=== PATIENT | female | born 2000 | race Caucasian/White ===

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

== ENCOUNTER 2022-09-23 15:04 | Emergency (ER) | payer MEDICAID, SELFPAY ==
[2022-09-23 15:09] VITALS: BP 105/60; PULSE 65; RESP 16; TEMP 37.1; O2SAT 100
--- NOTE | 2022-09-23 15:14 | ED.FEMALEGU ---
HPI - Female Genitourinary General Stated complaint: uti Time Seen by Provider: 09/23/22 15:19 Source: patient and RN notes reviewed Mode of arrival: ambulatory Limitations: no limitations History of Present Illness HPI Narrative: 22-year-old female presents concern for dark colored urine. She reports she was diagnosed with a urinary tract infection loss 2 months ago, was prescribed cephalexin, however at the same time she had a medical and did not take all of the antibiotic because it caused her to vomit. She denies frequency, urgency, dysuria, back pain, abdominal pain, flank pain, hematuria, nausea, vomiting, fever. She reports she thought maybe she still had infection since she did not finish her antibiotics and her urine is dark colored. MD elicited complaint: UTI Related Data Home Medications Medication Instructions Recorded Confirmed No Home Medications 09/23/22 09/23/22 Allergies Allergy/AdvReac Type Severity Reaction Status Date / Time No Known Allergies Allergy Unknown Verified 09/23/22 15:30 Review of Systems Review of Systems: CONSTITUTIONAL: Denies malaise, chills, sweats, or fever. CARDIOVASCULAR: Denies chest pain, palpitations, or edema. RESPIRATORY: Denies cough or dyspnea. GASTROINTESTINAL: Denies abdominal pain, nausea, vomiting, diarrhea GENITOURINARY: Denies dysuria, frequency, urgency, suprapubic pressure. Denies flank pain or hematuria. Reports dark-colored urine SKIN: Denies rash or itching. MUSCULOSKELETAL: Denies back pain or myalgia. All systems reviewed & are unremarkable except as noted in HPI and below PMFSH Past Medical History Medical History (Updated 09/23/22 @ 15:35 by Renita Anderson NP) CAROLEE (generalized anxiety disorder) MDD (major depressive disorder) Family History Family History Mother No problems noted. Father No problems noted. Other Unknown family medical history Social History Social History Smoking packs per day: 0 Smoking cigarettes per day: 0.0 Years smoked: 0 Smoking pack-years: 0.00 Smoking status: Never smoker Second hand tobacco smoke exposure: No Alcohol intake: never Substance use: never Substance use type: does not use Living arrangements: with family Occupation/Education: unemployed Additional occupation/education comments: 10th grade Gender identity (if verbalized by the patient): Female Sexual Orientation (if Verbalized by the Patient): Straight or Heterosexual Spiritual care concerns: No Comments At time of signature, agree with nursing past medical, surgical, social and family history. There is no relevant family history pertinent to the presenting complaint Exam Narrative: GENERAL: Well-appearing, well-nourished, and in no acute distress. HEAD: Normocephalic. EYES: PERRLA, conjunctivae clear. NECK: Supple. No lymphadenopathy CHEST: Clear to auscultation. No respiratory distress. HEART: Regular rate and rhythm. ABDOMEN: Soft, nontender upon palpation, nondistended, normal active bowel sounds, no palpable or pulsatile masses, no guarding. No CVA tenderness SKIN: Warm, dry, no rash. NEURO: Alert and oriented x3. PSYCH: Normal mood and affect Course Course Emergency Course: Patient is aware of diagnosis, understands and agrees to treatment plan. Anticipatory guidance given. Patient agrees to follow-up as directed and is aware of reasons to seek care at the emergency department. Portions of this record may have been created with voice recognition software Level of Care: Express Care Visit Vital Signs Vital signs: Vital Signs Temperature 98.7 F 09/23/22 15:09 Pulse Rate 65 09/23/22 15:09 Respiratory Rate 16 09/23/22 15:09 Blood Pressure 105/60 09/23/22 15:09 Pulse Oximetry 100 09/23/22 15:09 Oxygen Delivery Room Air 09/23/22 15:09 Temperat
== END 2022-09-23 15:37 | disposition home or self-care (01) ==
PROVIDERS: Emergency Provider Nurse Practitioner
DX: N39.8 Other specified disorders of urinary system (principal)
CPT/HCPCS: 81003; 87086; 99213; G0463

== ENCOUNTER 2023-05-31 17:16 | Emergency (ER) | payer BC, SELFPAY ==
[2023-05-31 17:24] VITALS: BP 126/65; PULSE 100; RESP 20; TEMP 37; O2SAT 100
--- NOTE | 2023-05-31 17:27 | ED.FEMALEGU ---
HPI - Female Genitourinary General Chief complaint: PRODUCTION CELL LEADER Stated complaint: Vaginal Issue Time Seen by Provider: 05/31/23 17:33 Source: patient and RN notes reviewed Mode of arrival: ambulatory Limitations: no limitations History of Present Illness HPI Narrative: 22-year-old female presents with concern for fishy smelling vaginal discharge for 1-2 months. She reports she has also been having small amount of bleeding during intercourse. She reports the symptoms started after she had a medical in March. She denies abdominal pain, back pain, fever, aches, chills, sweats, dysuria, frequency, urgency. She reports her periods have been normal. She has not had any known exposure to STDs but would like to be tested MD elicited complaint: vaginal discharge Related Data Allergies Allergy/AdvReac Type Severity Reaction Status Date / Time No Known Allergies Allergy Unknown Verified 05/31/23 17:33 Review of Systems Review of Systems: CONSTITUTIONAL: Denies malaise, chills, sweats, or fever. CARDIOVASCULAR: Denies chest pain, palpitations, or edema. RESPIRATORY: Denies cough or dyspnea. GASTROINTESTINAL: Denies abdominal pain, nausea, vomiting, diarrhea GENITOURINARY: Denies dysuria, frequency, urgency, suprapubic pressure. Denies flank pain or hematuria. Reports fishy smelling vaginal discharge and bleeding with intercourse SKIN: Denies rash or itching. MUSCULOSKELETAL: Denies back pain or myalgia. All systems reviewed & are unremarkable except as noted in HPI and below PMFSH Past Medical History Medical History (Updated 05/31/23 @ 17:43 by Renita Anderson NP) CAROLEE (generalized anxiety disorder) MDD (major depressive disorder) Family History Family History Mother No problems noted. Father No problems noted. Other Unknown family medical history Social History Social History Smoking packs per day: 0 Smoking cigarettes per day: 0.0 Years smoked: 0 Smoking pack-years: 0.00 Smoking status: Never smoker Second hand tobacco smoke exposure: No Alcohol intake: never Substance use: never Substance use type: does not use Living arrangements: with family Occupation/Education: unemployed Additional occupation/education comments: 10th grade Gender identity (if verbalized by the patient): Female Sexual Orientation (if Verbalized by the Patient): Straight or Heterosexual Spiritual care concerns: No Comments At time of signature, agree with nursing past medical, surgical, social and family history. There is no relevant family history pertinent to the presenting complaint Exam Narrative: GENERAL: Well-appearing, well-nourished, and in no acute distress. HEAD: Normocephalic. EYES: PERRLA, conjunctivae clear. NECK: Supple. No lymphadenopathy CHEST: Clear to auscultation. No respiratory distress. HEART: Regular rate and rhythm. ABDOMEN: Soft, nontender upon palpation, nondistended, normal active bowel sounds, no palpable or pulsatile masses, no guarding. No CVA tenderness SKIN: Warm, dry, no rash. NEURO: Alert and oriented x3. PSYCH: Normal mood and affect Patient refused vaginal exam, reports she has had them in the past and they have been painful Course Course Emergency Course: Will treat for presumptive CV, test for gonorrhea, chlamydia, trich, and give patient referral to gynecology further evaluation Patient is aware of, understands and agrees to treatment plan. Anticipatory guidance given. Patient agrees to follow-up as directed and is aware of reasons to seek care at the emergency department. Portions of this record may have been created with voice recognition software Level of Care: Express Care Visit Vital Signs Vital signs: Reviewed. MDM - Female Genitourinary MDM Narrative Medical decision making narrative: Exam findings and UA show no acute c
[2023-05-31 20:21] LABS: Trichomonas Vag PCR DETECTED (NOT DETECTE)
[2023-05-31 20:56] LABS: Chlamydia trachomatis NOT DETECTED (NOT DETECTE); Neisseria gonorrhoeae PCR NOT DETECTED (NOT DETECTE)
== END 2023-05-31 18:05 | disposition home or self-care (01) ==
PROVIDERS: Emergency Provider Nurse Practitioner
DX: N89.8 Other specified noninflammatory disorders of vagina (principal)
CPT/HCPCS: 81003; 87086; 87088; 87147; 87491; 87591; 87661; 99214; G0463

== ENCOUNTER 2023-12-17 10:20 | Emergency (ER) | payer BC, SELFPAY ==
[2023-12-17 10:27] VITALS: BP 125/77; PULSE 87; RESP 16; TEMP 37.2; O2SAT 100
--- NOTE | 2023-12-17 10:40 | ED.URI ---
HPI - URI/Sore Throat General Chief Complaint: Upper Respiratory Infection Stated Complaint: Congestion/Cough History of Present Illness HPI Narrative: Patient presents with seasonal allergies. Patient states she missed work today due to her allergies and needs a work note. Patient states she was given allergy pill which did help with her symptoms. No shortness of breath no chest pain no fever no body aches no concern for any influenza or COVID. Related Data Home Medications Medication Instructions Recorded Confirmed No Home Medications 12/17/23 12/17/23 Allergies Allergy/AdvReac Type Severity Reaction Status Date / Time No Known Allergies Allergy Unknown Verified 05/31/23 17:33 Review of Systems Review of Systems: CONSTITUTIONAL: Denies chills, or sweats. Reports fever and generalized body aches EYES: Denies visual changes, redness, or discharge. ENT: Denies otalgia. Reports nasal congestion runny nose and sore throat CARDIOVASCULAR: Denies chest pain, palpitations, or edema. RESPIRATORY: Denies dyspnea. Reports occasional cough GASTROINTESTINAL: Denies abdominal pain, nausea, vomiting, or diarrhea. GENITOURINARY: Denies dysuria or hematuria. SKIN: Denies rash or itching. MUSCULOSKELETAL: Denies back pain, joint pain, or myalgia. Reports generalized body aches NEUROLOGIC: Denies headache, numbness, or weakness. PSYCHIATRIC: Denies anxiety or depression. [facility]LY [facility] Past Medical History Medical History (Updated 12/17/23 @ 10:43 by ANGELICA Jorge) CAROLEE (generalized anxiety disorder) MDD (major depressive disorder) Family History Family History Mother No problems noted. Father No problems noted. Other Unknown family medical history Social History Social History Smoking packs per day: 0 Smoking cigarettes per day: 0.0 Years smoked: 0 Smoking pack-years: 0.00 Smoking status: Never smoker Second hand tobacco smoke exposure: No Alcohol intake: never Substance use: never Substance use type: does not use Living arrangements: with family Occupation/Education: unemployed Additional occupation/education comments: 10th grade Gender identity (if verbalized by the patient): Female Sexual Orientation (if Verbalized by the Patient): Straight or Heterosexual Spiritual care concerns: No Comments At time of signature, agree with nursing past medical, surgical, social and family history. There is no relevant family history pertinent to the presenting complaint Exam Narrative: The patient is a well-developed, well-nourished in no acute distress. SKIN: Skin is warm and dry without erythema, swelling or exudate. There is good turgor. No tenting. HEAD: Atraumatic. Normocephalic. No temporal or scalp tenderness. EYES: Moist and bright. Sclera and conjunctivae normal. No discharge. PERRLA. Extraocular motions intact. Gross visual acuity intact. EARS: Pinna is normal shape and contour. Clear external auditory canals. TM pearly kauffman with good cone of light, no erythema or suppuration. Bilateral cerumen noted no gross hearing deficit. NOSE: pink, moist mucosa with good air movement. Clear rhinorrhea without nasal flaring. Septum midline. Mouth: moist mucous membranes. THROAT; mild erythema noted to posterior oropharynx with moderate postnasal drainage. Without exudate or ulceration.. Uvula midline. Normal movement of soft palate. NECK: Supple and nontender with full range of motion without discomfort. No meningeal signs. LUNGS: Equal and bilateral breath sounds without wheezes, rales or rhonchi. CHEST: The chest wall is without retractions or use of accessory muscles. HEART: Has a regular rate and rhythm without murmur, gallops, click or rub. ABDOMEN: Soft, nontender with positive active bowel sounds. No rebound tenderness. EXTREMITIES: Without cyanosis, clubbing or
== END 2023-12-17 10:53 | disposition home or self-care (01) ==
PROVIDERS: Emergency Provider Nurse Practitioner Family
DX: J30.9 Allergic rhinitis, unspecified (principal)
CPT/HCPCS: 99211; G0463

== ENCOUNTER 2024-02-19 09:49 | Emergency (ER) | payer BC, SELFPAY ==
[2024-02-19 09:54] VITALS: BP 111/67; PULSE 80; RESP 20; TEMP 36.8; O2SAT 100
--- NOTE | 2024-02-22 08:02 | ED.GENADULT ---
HPI - General Adult General Chief complaint: Urogenital-Female Stated complaint: Poss UTi Time Seen by Provider: 02/19/24 10:15 Source: patient, RN notes reviewed and old records reviewed Mode of arrival: ambulatory Limitations: no limitations History of Present Illness HPI narrative: 23-year-old female to Express Care for complaint of ongoing brown vaginal discharge and urinary frequency. Patient endorses last menstrual period started November 26. Patient reports positive test in December. [facility]. Patient denies abdominal pain, back pain, fever, bowel changes, nausea, vomiting , STI concerns. patient is anxious and tearful on exam room. Patient in no acute distress. Related Data Allergies Allergy/AdvReac Type Severity Reaction Status Date / Time No Known Allergies Allergy Unknown Verified 02/19/24 10:06 Review of Systems Review of Systems: All systems reviewed & are unremarkable except as noted in HPI and below Constitutional: Constitutional: Reports no additional constitutional complaints Eyes: Eyes: Reports no additional eye complaints ENT: Reports system reviewed and no additional complaints, except as documented Cardiovascular: Cardiovascular: Reports no additional cardiovascular complaints, Denies chest pain and Denies dyspnea Respiratory: Respiratory: Reports no additional respiratory complaints, Denies cough and Denies dyspnea Musculoskeletal: Musculoskeletal: Reports no additional musculoskeletal complaints Neurologic: Reports system reviewed and no additional complaints, except as documented Psychiatric: Psychiatric: Reports no additional psychiatric complaints [facility] Past Medical History Medical History (Updated 02/22/24 @ 20:09 by Laura Bustos APRN) CAROLEE (generalized anxiety disorder) MDD (major depressive disorder) Family History Family History Mother No problems noted. Father No problems noted. Other Unknown family medical history Social History Social History Smoking packs per day: 0 Smoking cigarettes per day: 0.0 Years smoked: 0 Smoking pack-years: 0.00 Smoking status: Never smoker Second hand tobacco smoke exposure: No Alcohol intake: never Substance use: never Substance use type: does not use Living arrangements: with family Occupation/Education: unemployed Additional occupation/education comments: 10th grade Gender identity (if verbalized by the patient): Female Sexual Orientation (if Verbalized by the Patient): Straight or Heterosexual Spiritual care concerns: No Comments At the time of my signature, I reviewed and agree with the nursing past medical, surgical, social, and family history. There is no relevant family history pertinent to the patient complaint. Exam Const: General: cooperative, healthy appearing, comfortable, no acute distress, alert and well nourished Nutritional Appearance: well nourished Orientation/consciousness: patient oriented x3 Limitations: no limitations HENMT: Head: normal to inspection Ears: external ears normal Face/Nose/Sinus: Normal external nose present, Normal nares present, normal facial exam, No erythema and No edema Face and sinus: normal facial exam, no erythema and no edema Mouth: Yes Normal oral and palatal mucosa present Eyes: General: appearance normal, both eyes and all related structures Neck: Neck: normal visual inspection, full ROM and no meningeal signs Lymphatic: no lymphadenopathy noted and no lymphedema noted Chest: Chest palpation & inspection: normal inspection of the chest Resp: Effort & Inspection: normal respiratory effort and able to speak in complete sentences Auscultation: clear to auscultation bilaterally Cardio: Jugular venous distension: no JVD Rate: regular
== END 2024-02-19 10:55 | disposition home or self-care (01) ==
PROVIDERS: Emergency Provider Nurse Practitioner Family
DX: N39.0 Urinary tract infection, site not specified (principal)
CPT/HCPCS: 81003; 87086; 99213; G0463

== ENCOUNTER 2024-03-31 10:15 | Emergency (ER) | payer BC, SELFPAY ==
[2024-03-31 10:25] VITALS: BP 119/77; PULSE 79; RESP 16; TEMP 36.7; O2SAT 99
--- NOTE | 2024-03-31 10:35 | ED.DENTAL ---
HPI - Dental/Oral General Chief complaint: Dental/Oral Stated complaint: left side jaw pain Time Seen by Provider: 03/31/24 10:30 Source: patient and RN notes reviewed Mode of arrival: ambulatory Limitations: no limitations History of Present Illness HPI Narrative: Patient presents today complaining of left lower wisdom tooth pain x3 days. Currently rates her pain 8/10 and has been taking Tylenol with some mild relief. Patient does not currently have a dentist. Reports pain increases with opening and closing of the mouth Related Data Home Medications Medication Instructions Recorded Confirmed norgestimate 0.25 mg-ethinyl 1 tablet PO DAILY 03/31/24 03/31/24 estradiol 35 mcg tablet (Sprintec (28)) Allergies Allergy/AdvReac Type Severity Reaction Status Date / Time No Known Allergies Allergy Unknown Verified 03/31/24 10:17 Review of Systems Review of Systems: CONSTITUTIONAL: Denies body aches, fever, chills, or sweats. EYES: Denies visual changes, redness, or discharge. ENT: Denies rhinorrhea, congestion, sore throat, or otalgia.+ dental pain CARDIOVASCULAR: Denies chest pain, palpitations, or edema. RESPIRATORY: Denies cough or dyspnea. GASTROINTESTINAL: Denies abdominal pain, nausea, vomiting, or diarrhea. GENITOURINARY: Denies dysuria or hematuria. SKIN: Denies rash, itching, or wounds. MUSCULOSKELETAL: Denies back pain, joint pain, or myalgia. NEUROLOGIC: Denies headache, numbness, tingling, or weakness. PSYCH: Denies depression or anxiety. FOR[facility]LY [facility] Past Medical History Medical History CAROLEE (generalized anxiety disorder) MDD (major depressive disorder) Family History Family History Mother No problems noted. Father No problems noted. Other Unknown family medical history Social History Social History Smoking packs per day: 0 Smoking cigarettes per day: 0.0 Years smoked: 0 Smoking pack-years: 0.00 Smoking status: Never smoker Second hand tobacco smoke exposure: No Alcohol intake: never Substance use: never Substance use type: does not use Living arrangements: with family Occupation/Education: unemployed Additional occupation/education comments: 10th grade Gender identity (if verbalized by the patient): Female Sexual Orientation (if Verbalized by the Patient): Straight or Heterosexual Spiritual care concerns: No Comments At time of signature, I have reviewed and agree with nursing past medical, surgical, social and family history unless otherwise noted. Please see nursing chart for further information. There is no relevant family history pertinent to the presenting complaint Exam Narrative: GENERAL: Well-appearing, well-nourished, and in no acute distress. HEAD: Normocephalic, atraumatic. EYES: EOMI. No redness or drainage. Conjunctivae normal. ENT: Mucous membranes pink and moist. Nares clear. No rhinorrhea. Tenderness in the left lower wisdom to with mild surrounding swelling of the gumline. No obvious periapical abscess. No facial swelling noted. No trismus. No facial swelling. Jaw line is nontender. NECK: Normal AROM. Supple. Bilateral anterior cervical chain lymphadenopathy. CHEST: No respiratory distress. EXTREMITIES: Normal range of motion. No edema. SKIN: Warm, dry, no rash. Capillary refill normal. Normal skin turgor. NEURO: No focal deficits. Alert and oriented x3. Gait steady. PSYCH: Normal affect. No signs of depression or anxiety. Course Course Level of Care: Express Care Visit Vital Signs Vital signs: Vital Signs Temperature 98.1 F 03/31/24 10:25 Pulse Rate 79 03/31/24 10:25 Respiratory Rate 16 03/31/24 10:25 Blood Pressure 119/77 03/31/24 10:25 Pulse Oximetry 99 03/31/24 10:25 Oxygen Delivery Room Air 07
== END 2024-03-31 10:41 | disposition home or self-care (01) ==
PROVIDERS: Emergency Provider Nurse Practitioner
DX: K08.89 Other specified disorders of teeth and supporting structures (principal)
CPT/HCPCS: 99213; G0463

== ENCOUNTER 2024-07-25 16:39 | Emergency (ER) | payer BC, SELFPAY ==
[2024-07-25 16:50] VITALS: BP 115/87; PULSE 97; RESP 16; TEMP 36.7; O2SAT 100
[2024-07-25 17:11] LABS: EDUAAPPEAR Clear; EDUABILI Negative (Negative); EDUABLOOD Negative (Negative); EDUACOLOR1 Yellow; EDUAGLUCOSE Negative (Negative); EDUAKETONE Negative (Negative); EDUALEUKO Negative (Negative); EDUANITRATE Negative (Negative); EDUAPH 7.5; EDUAPROTEIN Negative (Negative); EDUAUROBILI 0.2
--- NOTE | 2024-07-25 18:05 | ED_ITS ---
HPI - Female Genitourinary General Chief complaint: Urogenital-Female Stated complaint: urinary issue Time Seen by Provider: 07/25/24 18:05 Source: patient, RN notes reviewed and old records reviewed Mode of arrival: ambulatory Limitations: no limitations History of Present Illness HPI Narrative: patient presents with complaints of vaginal itching in urinary frequency. She denies dysuria. Reports scant vaginal discharge. She reports that she has no back pain or abdominal pain. Says that She would like to be tested for gonorrhea, chlamydia, Trichomonas. Says that she has had yeast infection in the past, reports similar type of itching, only this time itching is not quite as intense. She has not been taking anything for her symptoms. She denies any injury or trauma. She denies fever, chills, sweats. Voices no other concerns or complaints at this time. Related Data Home Medications Medication Instructions Recorded Confirmed norgestimate 0.25 mg-ethinyl 1 tablet PO DAILY 03/31/24 07/25/24 estradiol 35 mcg tablet (Sprintec (28)) Allergies Allergy/AdvReac Type Severity Reaction Status Date / Time No Known Allergies Allergy Unknown Verified 07/25/24 18:17 Review of Systems Review of Systems: All systems reviewed & are unremarkable except as noted in HPI and below Constitutional: Constitutional: Reports no additional constitutional complaints ENT: Reports system reviewed and no additional complaints, except as documented Cardiovascular: Cardiovascular: Reports no additional cardiovascular complaints Respiratory: Respiratory: Reports no additional respiratory complaints Gastrointestinal: Gastrointestinal: Reports no additional gastrointestinal complaints Genitourinary: Genitourinary: Reports no additional female genitourinary complaints and Reports as per HPI [facility] Past Medical History Medical History (Reviewed 03/31/24 @ 10:36 by Cindi Taveras, [facility], ) CAROLEE (generalized anxiety disorder) MDD (major depressive disorder) Family History Family History Mother No problems noted. Father No problems noted. Other Unknown family medical history Social History Social History Smoking packs per day: 0 Smoking cigarettes per day: 0.0 Years smoked: 0 Smoking pack-years: 0.00 Smoking status: Never smoker Second hand tobacco smoke exposure: No Alcohol intake: never Substance use: never Substance use type: does not use Living arrangements: with family Occupation/Education: unemployed Additional occupation/education comments: 10th grade Gender identity (if verbalized by the patient): Female Sexual Orientation (if Verbalized by the Patient): Straight or Heterosexual Spiritual care concerns: No Comments At the time of my signature, I reviewed and agree with the nursing past medical, surgical, social, and family history. There is no relevant family history pertinent to the patient complaint. Exam Const: General: cooperative, no acute distress, alert and awake Orientation/consciousness: oriented to person, oriented to place and oriented to time HENMT: Head: normal to inspection Resp: Effort & Inspection: normal respiratory effort and able to speak in complete sentences Auscultation: clear to auscultation bilaterally, no crackles, no rales, no rhonchi and no wheezes Cardio: Palpation: normal PMI Rate: regular rate Rhythm: regular rhythm Heart sounds: S1 normal heart sound present and S2 normal heart sound present : General: Yes bladder normal to palpation and Yes no CVA tenderness Neuro: General: oriented to person, oriented to place and oriented to time Cranial nerves: Yes CN's II-XII intact bilaterally Psych: Appearance: grossly normal Thought process: Normal thought process present Insight: Good insight present (Psych) Judgement: Good judgement present (Psych) Course Course Level of Care: Express Care Visit Vital Signs Vital signs: Vital Signs Temperature 98.1 F 07/25/24 16:50 Pulse Rate 97 07/25/24 16:50 Respiratory Rate 16 07/25/24 16:50 Blood Pressure 115/87 07/25/24 16:50 Pulse Oximetry 100 07/25/24 16:50 Oxygen Delivery Room Air 07/25/24 16:50 Temperature 98.1 F 07/25/24 16:50 Pulse Rate 97 07/25/24 16:50 Respiratory Rate 16 07/25/24 16:50 Blood Pressure 115/87 07/25/24 16:50 Pulse Oximetry 100 07/25/24 16:50 Oxygen Delivery Room Air 07/25/24 16:50 Reviewed MDM - Female Genitourinary MDM Narrative Medical decision making narrative: UA with no sign of infection. Dirty urine sent for gonorrhea, chlamydia, Trichomonas. Treat for he vaginal yeast infection. Discharge instructions reviewed with patient, as well as provided in writing per nursing staff. The instructions also include specific and strict return/GO TO THE ER as well as f/u information. All questions have been answered, and the patient deny any further questions with discharge and discharge plan. Some parts of this dictation were generated by voice recognition software and may contain typographical and/or grammatical inaccuracies. Differential Diagnosis Differential diagnosis: Likely urinary tract infection, bacterial vaginosis, trichomoniasis and vaginitis Medical Records Attestation: I reviewed the patient's medical records. Lab Data Attestation: I reviewed the patient's lab results. Labs: Lab Results 07/25/24 07/25/24 07/25/24 Range/Units 16:58 16:58 16:58 POC Urine Color Yellow Yellow POC Urine Clarity Clear Clear POC Urine pH 7.5 POC Ur Specif [place] POC Urine Protein (Negative) POC Ur Glucose (UA) (Negative) POC Urine Ketones (Negative) POC Urine Blood (Negative) POC Urine Nitrite (Negative) POC Urine Bilirubin (Negative) POC Urine Urobilinogen POC U Leukocyte Esteras (Negative) 07/25/24 07/25/24 07/25/24 Range/Units 16:58 16:58 16:58 POC Urine Color POC Urine Clarity POC Urine pH 7.5 POC Ur Specif [place] 1.020 1.020 POC Urine Protein Negative Negative (Negative) POC Ur Glucose (UA) Negative (Negative) POC Urine Ketones (Negative) POC Urine Blood (Negative) POC Urine Nitrite (Negative) POC Urine Bilirubin (Negative) POC Urine Urobilinogen POC U Leukocyte Esteras (Negative) 07/25/24 07/25/24 07/25/24 Range/Units 16:58 16:58 16:58 POC Urine Color POC Urine Clarity POC Urine pH POC Ur Specif [place] POC Urine Protein (Negative) POC Ur Glucose (UA) Negative (Negative) POC Urine Ketones Negative Negative (Negative) POC Urine Blood Negative Negative (Negative) POC Urine Nitrite Negative (Negative) POC Urine Bilirubin (Negative) POC Urine Urobilinogen POC U Leukocyte Esteras (Negative) 07/25/24 07/25/24 07/25/24 Range/Units 16:58 16:58 16:58 POC Urine Color POC Urine Clarity POC Urine pH POC Ur Specif [place] POC Urine Protein (Negative) POC Ur Glucose (UA) (Negative) POC Urine Ketones (Negative) POC Urine Blood (Negative) POC Urine Nitrite Negative (Negative) POC Urine Bilirubin Negative Negative (Negative) POC Urine Urobilinogen 0.2 0.2 POC U Leukocyte Esteras Negative (Negative) 07/25/24 Range/Units 16:58 POC Urine Color POC Urine Clarity POC Urine pH POC Ur Specif [place] POC Urine Protein (Negative) POC Ur Glucose (UA) (Negative) POC Urine Ketones (Negative) POC Urine Blood (Negative) POC Urine Nitrite (Negative) POC Urine Bilirubin (Negative) POC Urine Urobilinogen POC U Leukocyte Esteras Negative (Negative) Discharge Plan Discharge Clinical Impression: Yeast infection Patient Disposition: Home, Self-Care Condition: Stable Instructions: Antibiotic Form, Yeast Infection (ED) Additional Instructions: take medication as prescribed. Follow with primary care provider. Emergency department for new or worse symptoms Patient Language: Hungarian Prescriptions: New fluconazole [Diflucan] 200 mg tablet 200 mg PO DAILY Qty: 2 0RF Rx Instructions: take 1 by mouth now, may repeat in 48-72 hours if symptoms still persist No Action norgestimate-ethinyl estradiol [Sprintec (28)] 0.25-35 mg-mcg tablet 1 tablet PO DAILY Follow-up/Referrals: PHYSICIAN,ENGINE HOSTLER [Primary Care Provider] - Time of Disposition: 18:21
[2024-07-26 19:53] LABS: Trichomonas Vag PCR NOT DETECTED (NOT DETECTE)
[2024-07-26 20:13] LABS: Chlamydia trachomatis NOT DETECTED (NOT DETECTE); Neisseria gonorrhoeae PCR NOT DETECTED (NOT DETECTE)
== END 2024-07-25 18:25 | disposition home or self-care (01) ==
PROVIDERS: Emergency Provider Nurse Practitioner Family
DX: B37.31 Acute candidiasis of vulva and vagina (principal)
CPT/HCPCS: 81003; 87491; 87591; 87661; 99213; G0463

== ENCOUNTER 2024-08-04 11:54 | Emergency (ER) | payer BC, SELFPAY ==
[2024-08-04 12:06] VITALS: BP 125/76; PULSE 86; RESP 16; TEMP 36.3; O2SAT 99
--- NOTE | 2024-08-04 12:38 | ED.FEMALEGU ---
HPI - Female Genitourinary General Chief complaint: Urogenital-Female Stated complaint: vaginal odor,bleeding Time Seen by Provider: 08/04/24 12:20 Source: patient Mode of arrival: ambulatory Limitations: no limitations History of Present Illness HPI Narrative: 24-year-old female presents with complaint of vaginal spotting for 3-4 days. Reports that vaginal spotting at started after intercourse. Last menstrual period was July 05. Not on control. Also reports vaginal odor, irritation. Reports that she is not in any pain. No abdominal cramping or back pain. Patient concern for STI. Does not have a paint pourer. All systems reviewed and negative except as noted above. Related Data Home Medications Medication Instructions Recorded Confirmed norgestimate 0.25 mg-ethinyl 1 tablet PO DAILY 03/31/24 07/25/24 estradiol 35 mcg tablet (Sprintec (28)) Allergies Allergy/AdvReac Type Severity Reaction Status Date / Time No Known Allergies Allergy Unknown Verified 08/04/24 11:59 Review of Systems Review of Systems: CONSTITUTIONAL: Denies fever, chills, or sweats. EYES: Denies visual changes, redness, or discharge. ENT: Denies rhinorrhea, congestion, sore throat, or otalgia. CARDIOVASCULAR: Denies chest pain, palpitations, or edema. RESPIRATORY: Denies cough or dyspnea. GASTROINTESTINAL: Denies abdominal pain, nausea, vomiting, or diarrhea. GENITOURINARY: Denies dysuria or hematuria. Reports vaginal spotting, odor, irritation. SKIN: Denies rash or itching. MUSCULOSKELETAL: Denies back pain, joint pain, or myalgia. NEUROLOGIC: Denies headache, numbness, or weakness. PSYCHIATRIC: Denies anxiety or depression. All other systems reviewed are negative, except as documented in HPI. [facility], LAT[facility] Past Medical History Medical History CAROLEE (generalized anxiety disorder) MDD (major depressive disorder) Family History Family History Mother No problems noted. Father No problems noted. Other Unknown family medical history Social History Social History Smoking packs per day: 0 Smoking cigarettes per day: 0.0 Years smoked: 0 Smoking pack-years: 0.00 Smoking status: Never smoker Second hand tobacco smoke exposure: No Alcohol intake: never Substance use: never Substance use type: does not use Living arrangements: with family Occupation/Education: unemployed Additional occupation/education comments: 10th grade Gender identity (if verbalized by the patient): Female Sexual Orientation (if Verbalized by the Patient): Straight or Heterosexual Spiritual care concerns: No Comments At time of signature, agree with nursing past medical, surgical, social and family history. There is no relevant family history pertinent to the presenting complaint. Exam Narrative: GENERAL: This is a well-nourished, well-developed patient, in no apparent distress. HEAD: normocephalic, atraumatic. EYES: PERRL. Sclera clear/white. Vision is grossly intact. EARS: External ears normal NOSE: External nose normal NECK: Neck supple, non-tender without lymphadenopathy, masses or thyromegaly. CARDIOVASCULAR: Regular rate and rhythm without murmurs, gallops, or rubs. RESPIRATORY: Clear to auscultation. Breath sounds equal bilaterally. No wheezes, rales, or rhonchi. SKIN: warm, Dry, intact with no suspicious lesions or rash, good texture and turgor. NEURO: awake, alert, and oriented to person, place and time. There were no obvious focal neurologic abnormalities. EXTREMITIES: No joint tenderness, effusion, or edema noted. urogenital: pelvic exam was deferred by patient Course Course Level of Care: Express Care Visit Vital Signs Vital signs: Vital Signs Temperature 36.3 C L 08/04/24 12:06 Pulse Rate 86 08/04/24 12:06 Respiratory Rate 16 08/04/24 12:06 Blood Pressure 125/76 08/04/24 12:06 Pulse Oximetry 99 08/04/24 12:06 Oxygen Delivery Room Air 08/04/24 12:06 Temperature 36.3 C L 08/04/24 12:06 Pulse Rate 86 08/04/24 12:06 Respiratory Rate 16 08/04/24 12:06 Blood Pressure 125/76 08/04/24 12:06 Pulse Oximetry 99 08/04/24 12:06 Oxygen Delivery Room Air 08/04/24 12:06 reviewed MDM - Female Genitourinary MDM Narrative Medical decision making narrative: urine test was negative. Patient is not in any pain or discomfort. Gonorrhea, chlamydia and Trichomonas ordered. Also testing for bacterial vaginosis and yeast. Patient wants to wait for test results prior to treating with any antibiotics. Patient referred to paint pourer and primary care physician for follow-up. Patient is well-appearing, nontoxic. Patient is aware of diagnosis, understands and agrees to treatment plan. Anticipatory guidance given. Patient agrees to follow-up as directed and is aware of reasons to seek care at the emergency department. Portions of this record may have been created with voice recognition software Differential Diagnosis Differential diagnosis: Likely bacterial vaginosis, trichomoniasis and other ( gonorrhea, chlamydia, yeast infection) Discharge Plan Discharge Clinical Impression: Vaginal spotting, Vaginal irritation, Concern about sexually transmitted disease in female without diagnosis Patient Disposition: Home, Self-Care Condition: Stable Instructions: Antibiotic Form, Abnormal (Dysfunctional) Uterine Bleeding (ED) Additional Instructions: your test was negative today. You were tested for gonorrhea, chlamydia, Trichomonas, yeast and bacterial vaginosis today. Results will take 48-72 hours. Follow-up with paint pourer at next available appointment for further evaluation. For any worsening of her symptoms go to the ER. Prescriptions: No Action norgestimate-ethinyl estradiol [Sprintec (28)] 0.25-35 mg-mcg tablet 1 tablet PO DAILY fluconazole [Diflucan] 200 mg tablet 200 mg PO DAILY Qty: 2 0RF Rx Instructions: take 1 by mouth now, may repeat in 48-72 hours if symptoms still persist Follow-up/Referrals: Tirso Salazar MD [Physician] - 1 Week (call and schedule follow up appointment with paint pourer) Davon Matos MD [Physician] - 1 Week ( Establish care with a primary care physician) PHYSICIAN,LICENSED OCCUPATIONAL THERAPY ASSISTANT [Primary Care Provider] - Time of Disposition: 12:54
[2024-08-04 12:46] LABS: BEDSIDEPREGUCG Negative (Negative)
[2024-08-04 19:13] LABS: Trichomonas Vag PCR NOT DETECTED (NOT DETECTE)
[2024-08-04 23:07] LABS: Chlamydia trachomatis NOT DETECTED (NOT DETECTE); Neisseria gonorrhoeae PCR NOT DETECTED (NOT DETECTE)
[2024-08-05 16:58] LABS: Bacterial Vaginosis POSITIVE (NEGATIVE)
== END 2024-08-04 12:57 | disposition home or self-care (01) ==
PROVIDERS: Emergency Provider Nurse Practitioner Family
DX: N76.0 Acute vaginitis (principal); N93.9 Abnormal uterine and vaginal bleeding, unspecified; Z20.2 Contact with and (suspected) exposure to infections with a predominantly sexual mode of transmission
CPT/HCPCS: 81025; 81513; 87070; 87491; 87591; 87661; 99213; G0463

== ENCOUNTER 2024-12-22 14:37 | Emergency (ER) | payer BC, SELFPAY ==
--- NOTE | 2024-12-22 14:39 | ED.EAR ---
HPI - Ear Problem General Chief complaint: Ear Stated complaint: right ear clogged Time Seen by Provider: 12/22/24 14:38 Source: patient Mode of arrival: ambulatory Limitations: no limitations History of Present Illness HPI Narrative: Mildred is a 24 year old female patient presenting to the clinic today with complaints of right ear clogged and a possible stye on the right upper eyelid. She reports she has been putting some antibiotic cream to the right eye and the symptoms have improved but she still has a bump. Denies any pain at this time to the right upper eyelid. States she is having decreased hearing in the right ear. Has tried [id number] ear drops without success. Related Data Allergies Allergy/AdvReac Type Severity Reaction Status Date / Time No Known Allergies Allergy Unknown Verified 12/22/24 14:39 Review of Systems Review of Systems: Pertinent positives per HPI. Patient denies any fever, chills, rash, headache, visual changes, dizziness, cough, shortness of breath, chest pain, palpitations, nausea, vomiting, diarrhea, constipation, abdominal pain, or any urinary issues. PMFSH Past Medical History Medical History MDD (major depressive disorder) CAROLEE (generalized anxiety disorder) Family History Family History Mother No problems noted. Father No problems noted. Other Unknown family medical history Social History Social History Smoking packs per day: 0 Smoking cigarettes per day: 0.0 Years smoked: 0 Smoking pack-years: 0.00 Smoking status: Never smoker Second hand tobacco smoke exposure: No Alcohol intake: never Substance use: never Substance use type: does not use Living arrangements: with family Occupation/Education: unemployed Additional occupation/education comments: 10th grade Gender identity (if verbalized by the patient): Female Sexual Orientation (if Verbalized by the Patient): Straight or Heterosexual Spiritual care concerns: No Comments At the time of my signature, I reviewed and agree with the nursing past medical, surgical, social, and family history. There is no relevant family history pertinent to the patient complaint. Exam Narrative: General: Well-developed, well nourished, in no apparent distress Head: Normocephalic, atraumatic Eyes: Pupils equally round and reactive to light bilaterally, EOM intact, sclera and conjunctive clear, no discharge, right upper eyelid with a solid nonfluctuant papular lesion, nontender Ears: TMs intact and clear, cerumen impaction to the right ear canal, ear irrigation was performed successfully, ear canals clear, no drainage, grossly hearing normal. Nose: Nares patent, no discharge, no inflammation, no sinus tenderness. Mouth: Oral pharynx without lesions or masses, good dentition, MMM. Neck: Supple, trachea midline, no enlargement of anterior or posterior cervical nodes, no thyroid masses or goiter palpable. Cardio: Regular rate and rhythm, s1 and s2 normal, no murmur appreciated. Resp: Clear to auscultation bilaterally, no rhonchi, rales, wheezing or rubs Course Course Emergency Course: Portions of this record may have been created with voice recognition software. Level of Care: Express Care Visit Vital Signs Vital signs: Vital Signs Temperature 36.8 C 12/22/24 14:43 Pulse Rate 73 12/22/24 14:43 Respiratory Rate 18 12/22/24 14:43 Blood Pressure 113/67 12/22/24 14:43 Pulse Oximetry 100 12/22/24 14:43 Oxygen Delivery Room Air 12/22/24 14:43 Temperature 36.8 C 12/22/24 14:43 Pulse Rate 73 12/22/24 14:43 Respiratory Rate 18 12/22/24 14:43 Blood Pressure 113/67 12/22/24 14:43 Pulse Oximetry 100 12/22/24 14:43 Oxygen Delivery Room Air 12/22/24 14:43 Vital signs reviewed Procedures Ear Wax Removal Right Ear: Ear Wax Removal Date: 12/22/24 Results: Re-examined: cerumen removed completely TM Examination: TM(s) intact, normal appearance Ear Canal Exam: atraumatic Patient Tolerated Procedure: well and no complications Complications: no problems Technique: ear canal irrigated and ear canal curetted Additional Comments: Verbal consent obtained for ear irrigation. Risk and benefits explained and patient voiced understanding. Ear irrigation performed using an elephant ear and spray water bottle. Mixture of 1/2 peroxide 1/2 water used to irrigate ear canal. Cerumen impaction cleared and TM visualized without redness. Grossly hearing normal. Patient tolerated procedure well Medical Decision Making MDM Narrative Medical decision making narrative: At the time of visit patient is resting comfortably on the exam table. Patient appears to be nontoxic. Procedures: Right ear irrigation was performed successfully and lighted curette was used. Plan: I suspect patient has likely a chalazion vs stye however since the area began painful will place her on some E-Mycin ointment and have her follow-up with Ophthalmology. Right ear irrigation was performed in the clinic successfully. Supportive measures were discussed with the patient and they voiced understanding discharge instructions and agrees to treatment plan. Return precautions reviewed Differential Diagnosis Differential Diagnosis: Otitis media, otitis sternum eustachian tube dysfunction, cerumen impaction, upper respiratory infection, serous otitis. Vital Signs Vital Signs: Vital Signs Temperature 36.8 C 12/22/24 14:43 Pulse Rate 73 12/22/24 14:43 Respiratory Rate 18 12/22/24 14:43 Blood Pressure 113/67 12/22/24 14:43 Pulse Oximetry 100 12/22/24 14:43 Oxygen Delivery Room Air 12/22/24 14:43 Temperature 36.8 C 12/22/24 14:43 Pulse Rate 73 12/22/24 14:43 Respiratory Rate 18 12/22/24 14:43 Blood Pressure 113/67 12/22/24 14:43 Pulse Oximetry 100 12/22/24 14:43 Oxygen Delivery Room Air 12/22/24 14:43 Discharge Plan Discharge Clinical Impression: Right ear impacted cerumen External hordeolum Qualifiers: Laterality: right Eyelid: upper Qualified Code(s): H00.011 - Hordeolum externum right upper eyelid Patient Disposition: Home Condition: Stable Instructions: Antibiotic Form, Stye (ED), Chalazion (ED) Additional Instructions: Ear irrigation was performed in the right ear and ear wax was removed successfully Apply E-Mycin ointment to the right eyelid twice daily x7 days May follow-up with electrical sign servicer if symptoms persist as this may be a chalazion Dr. Abigail Landa vision- Patient Language: Haitian Prescriptions: New erythromycin 5 mg/gram (0.5 %) ointment 0.5 inch RIGHT EYE BID 7 Days Qty: 3.5 0RF Follow-up/Referrals: PHYSICIAN,DUST COLLECTOR ORE CRUSHING [Primary Care Provider] - Time of Disposition: 14:58 Quality NIHSS Nursing Documentation ED NIHSS nursing documentation: reviewed/agree
[2024-12-22 14:43] VITALS: BP 113/67; PULSE 73; RESP 18; TEMP 36.8; O2SAT 100
== END 2024-12-22 15:05 | disposition home or self-care (01) ==
PROVIDERS: Emergency Provider Nurse Practitioner Family
DX: H61.21 Impacted cerumen, right ear (principal); H00.011 Hordeolum externum right upper eyelid
CPT/HCPCS: 69209; 99213; A9270; G0463

== ENCOUNTER 2025-01-23 11:07 | Emergency (ER) | payer BC, SELFPAY ==
[2025-01-23 11:10] VITALS: BP 109/64; PULSE 66; RESP 12; TEMP 36.5; O2SAT 100
--- NOTE | 2025-01-23 11:34 | ED.EYEPROB ---
HPI - Eye Problem General Chief complaint: Eye Problems Stated complaint: RT [facility] Time Seen by Provider: 01/23/25 11:34 Source: patient, RN notes reviewed and old records reviewed Mode of arrival: ambulatory Limitations: no limitations History of Present Illness HPI Narrative: 24-year-old female presents to the [facility] for a stye to the right eye lid upper. Was seen 1 month ago for the same. States that she did not follow-up with an eye doctor. Use the medication, it went away and returned a day or 2 ago. Denies any blurry vision or change in vision. Related Data Allergies Allergy/AdvReac Type Severity Reaction Status Date / Time No Known Allergies Allergy Unknown Verified 01/23/25 11:23 Review of Systems Review of Systems: All systems reviewed & are unremarkable except as noted in HPI and below Constitutional: Constitutional: Reports no additional constitutional complaints Eyes: Eyes: Reports as per HPI ENT: Reports system reviewed and no additional complaints, except as documented Cardiovascular: Cardiovascular: Reports no additional cardiovascular complaints, Denies chest pain and Denies dyspnea Respiratory: Respiratory: Reports no additional respiratory complaints, Denies chest congestion, Denies cough and Denies dyspnea Musculoskeletal: Musculoskeletal: Reports no additional musculoskeletal complaints Integumentary/Breasts: Skin/Breast: Reports system reviewed and no additional complaints, except as docu PMFSH Past Medical History Medical History MDD (major depressive disorder) CAROLEE (generalized anxiety disorder) Family History Family History Mother No problems noted. Father No problems noted. Other Unknown family medical history Social History Social History Smoking packs per day: 0 Smoking cigarettes per day: 0.0 Years smoked: 0 Smoking pack-years: 0.00 Smoking status: Never smoker Second hand tobacco smoke exposure: No Alcohol intake: never Substance use: never Substance use type: does not use Living arrangements: with family Occupation/Education: unemployed Additional occupation/education comments: 10th grade Gender identity (if verbalized by the patient): Female Sexual Orientation (if Verbalized by the Patient): Straight or Heterosexual Spiritual care concerns: No Comments At the time of my signature, I reviewed and agree with the nursing past medical, surgical, social, and family history. There is no relevant family history pertinent to the patient complaint. Exam Const: General: cooperative, healthy appearing, comfortable, no acute distress, well developed, alert and well nourished Nutritional Appearance: well nourished Orientation/consciousness: patient oriented x3 Limitations: no limitations HENMT: Head: normal to inspection Ears: hearing grossly normal bilaterally, external ears normal, TM's normal bilaterally, EAC's normal, mastoids normal and no periauricular adenopathy Mouth: Yes Normal oral and palatal mucosa present, Yes lip normal, Yes tongue normal and Yes moist mucous membranes Throat: posterior oropharynx normal Eyes: General: appearance normal, both eyes and all related structures Alignment and Position: alignment normal Eyelids: eyelid abnormality right upper eyelid inflamed cyst and swelling; no crusting or scaling of lid margins Neck: Neck: normal visual inspection, full ROM, no lymphadenopathy and no meningeal signs Chest: Chest palpation & inspection: normal inspection of the chest Resp: Effort & Inspection: normal respiratory effort and able to speak in complete sentences Cardio: Rate: regular rate Skin: General skin exam: normal color and no rashes or lesions noted Neuro: General: patient oriented x3, gait normal, moves all extremities and no meningeal signs Cognition (Neuro): normal cognition Speech: normal speech Gait exam (Neuro): Normal gait present Extrem: General: normal to inspection, full ROM, capillary refill normal and normal gait Psych: Appearance: grossly normal and well kempt Mental Status: mental status grossly normal Speech and movement: Normal speech and movement present and Clear speech present Affect: normal affect Attitude: cooperative Course Course Level of Care: Express Care Visit Vital Signs Vital signs: Vital Signs Temperature 97.7 F 01/23/25 11:10 Pulse Rate 66 01/23/25 11:10 Respiratory Rate 12 01/23/25 11:10 Blood Pressure 109/64 01/23/25 11:10 Pulse Oximetry 100 01/23/25 11:10 Temperature 97.7 F 01/23/25 11:10 Pulse Rate 66 01/23/25 11:10 Respiratory Rate 12 01/23/25 11:10 Blood Pressure 109/64 01/23/25 11:10 Pulse Oximetry 100 01/23/25 11:10 Reviewed MDM - Eye Problem MDM Narrative Medical decision making narrative: Patient sitting in exam room. Patient is nontoxic, vitals stable. Patient with no visual changes. Exam consistent with a stye to the right eye. Patient appropriate for outpatient treatment with close follow-up Discharge instructions reviewed with patient, as well as provided in writing per nursing staff. The instructions also include specific and strict return/GO TO THE ER as well as f/u information. All questions have been answered, and the patient deny any further questions with discharge and discharge plan. Some parts of this dictation were generated by voice recognition software and may contain typographical and/or grammatical inaccuracies. Differential Diagnosis Differential diagnosis: Likely conjunctivitis and other (Stye) Critical Care Time Critical Care Time Critical Care Time: No Discharge Plan Discharge Clinical Impression: Hordeolum externum (stye) Qualifiers: Laterality: right Eyelid: upper Qualified Code(s): H00.011 - Hordeolum externum right upper eyelid Patient Disposition: Home Condition: Stable Instructions: Antibiotic Form, Stye (ED) Additional Instructions: Apply warm compress to your affected eye. Be sure to use a clean cloth each time to avoid spreading the infection. Gently clean your eyes with wet cotton balls or pads to remove crusty buildup or irritating discharge. Do not wear makeup Stop wearing contact lenses until the condition clears up. Use the eye ointment as prescribed Maintain good hygiene and only touch your eyes with freshly washed hands. You should follow-up with an eye doctor within the next 72 hours [facility]: Rachel- [phone] [facility] [phone] [facility] [phone] [place]: [facility] [phone] or [phone] [facility] [phone] [facility] [phone] [facility] [phone] [facility] Op[facility]- [phone] Patient Language: Mexican Prescriptions: New erythromycin 5 mg/gram (0.5 %) ointment 0.5 inch RIGHT EYE TID Qty: 3.5 0RF No Action erythromycin 5 mg/gram (0.5 %) ointment 0.5 inch RIGHT EYE BID 7 Days Qty: 3.5 0RF Follow-up/Referrals: PHYSICIAN,E BUSINESS PROJECT MANAGER [Primary Care Provider] - Stand Alone Forms: Work/School Release IP Time of Disposition: 12:00
== END 2025-01-23 12:05 | disposition home or self-care (01) ==
PROVIDERS: Emergency Provider Nurse Practitioner
DX: H00.011 Hordeolum externum right upper eyelid (principal)
CPT/HCPCS: 99213; G0463

== ENCOUNTER 2025-02-25 09:10 | Emergency (ER) | payer BC, SELFPAY ==
--- NOTE | 2025-02-25 09:13 | ED_ITS ---
HPI - Female Genitourinary General Chief complaint: Urogenital-Female Stated complaint: Vaginal Problems Time Seen by Provider: 02/25/25 09:13 Source: patient Mode of arrival: ambulatory Limitations: no limitations History of Present Illness HPI Narrative: Patient is a 24-year-old female who presents with vaginal itching. Denies any discharge or odor. States it feels the same as the last time she had a yeast in fection. Denies any concern for STI. Denies any burning with urination, urgency, frequency, low back pain, pelvic pain, fever, chills, nausea, vomiting, diarrhea. MD elicited complaint: dysuria Related Data Allergies Allergy/AdvReac Type Severity Reaction Status Date / Time No Known Allergies Allergy Unknown Verified 02/25/25 09:26 Review of Systems Review of Systems: All systems reviewed & are unremarkable except as noted in HPI and below Constitutional: Constitutional: Denies chills, Denies fever(s), Denies headache(s), Denies malaise and Denies weakness Eyes: Eyes: Denies change in vision, Denies eye discharge and Denies irritation ENT: Denies otalgia, Denies headache(s), Denies nasal congestion, Denies nasal discharge, Denies sinus pain and Denies sore throat Cardiovascular: Cardiovascular: Denies chest pain, Denies edema, Denies palpitations and Denies dyspnea Respiratory: Respiratory: Denies cough and Denies dyspnea Gastrointestinal: Gastrointestinal: Denies abdominal pain, Denies diarrhea, Denies nausea and Denies vomiting Genitourinary: Genitourinary: Denies hematuria, Denies nocturia, Denies dysuria, Denies flank pain, Denies urinary urgency, Denies vaginal discharge, Denies vaginal odor and Reports vaginal pruritus Musculoskeletal: Musculoskeletal: Denies back pain and Denies numbness Integumentary/Breasts: Skin/Breast: Denies pruritus and Denies rash Neurologic: Denies headache(s), Denies numbness and Denies weakness Psychiatric: Psychiatric: Reports no additional psychiatric complaints Endocrine: Endocrine: Denies palpitations PMFSH Past Medical History Medical History MDD (major depressive disorder) CAROLEE (generalized anxiety disorder) Family History Family History Mother No problems noted. Father No problems noted. Other Unknown family medical history Social History Social History Smoking packs per day: 0 Smoking cigarettes per day: 0.0 Years smoked: 0 Smoking pack-years: 0.00 Smoking status: Never smoker Second hand tobacco smoke exposure: No Alcohol intake: never Substance use: never Substance use type: does not use Living arrangements: with family Occupation/Education: unemployed Additional occupation/education comments: 10th grade Gender identity (if verbalized by the patient): Female Sexual Orientation (if Verbalized by the Patient): Straight or Heterosexual Spiritual care concerns: No Comments At time of signature, agree with nursing past medical, surgical, social and family history. There is no relevant family history pertinent to the presenting complaint. Exam Const: General: cooperative, healthy appearing, comfortable, no acute distress and well nourished Nutritional Appearance: well nourished Orientation/consciousness: patient oriented x3 HENMT: Head: normocephalic and atraumatic Ears: external ears normal Face/Nose/Sinus: Normal external nose present, Normal nares present and normal facial exam Face and sinus: normal facial exam Eyes: General: appearance normal, both eyes and all related structures Pupils: Equal, round and reactive pupils present EOM: EOMs intact bilaterally Neck: Neck: normal visual inspection, full ROM and supple Chest: Chest palpation & inspection: normal inspection of the chest Resp: Effort & Inspection: normal respiratory effort and able to speak in complete sentences Cardio: Rate: regular rate Rhythm: regular rhythm GI: Inspection: normal to inspection GI Palp: No abdominal tenderness and Yes Soft to palpation : General: Yes no CVA tenderness Back/Spine/Pelvis: Back: no CVA tenderness Skin: General skin exam: normal color and no rashes or lesions noted Neuro: General: patient oriented x3 and moves all extremities Cranial nerves: Yes Equal, round and reactive pupils present Extrem: General: normal to inspection and full ROM Psych: Appearance: grossly normal and well kempt Course Course Emergency Course: Patient is aware of diagnosis, understands and agrees to treatment plan. Anticipatory guidance given. Patient agrees to follow-up as directed and is aware of reasons to seek care at the emergency department. Portions of this record may have been created with voice recognition software Level of Care: Express Care Visit Vital Signs Vital signs: Reviewed MDM - Female Genitourinary MDM Narrative Medical decision making narrative: Provided patient with PCP and Ob referrals Pt well hydrated appearing, in no respiratory distress, hemodynamically stable. Recommend supportive care. The patient is stable at time of discharge the clinical impression was discussed and the patient was given the opportunity to ask questions, which were addressed as completely as possible given the information available at present. Anticipatory guidance and return to care precautions were discussed and the importance of primary care follow-up was stressed and encouraged. The patient voiced understanding of the plan, indica tions to return, and the need for follow-up. Exam findings show no acute concerns or changes Patient is appropriate for outpatient treatment and follow-up. Differential Diagnosis Differential diagnosis: Likely urinary tract infection, bacterial vaginosis, trichomoniasis, cervicitis, vaginitis, cystitis and other (Vaginal yeast infection) Medical Records Attestation: I reviewed the patient's medical records. Discharge Plan Discharge Clinical Impression: Vaginal yeast infection, Vagina itching Patient Disposition: Home Condition: Stable Instructions: Yeast Infection (ED) Additional Instructions: Take 1 pill today and in 3 days take additional pill. Do not use any scented soaps, tampons or pads. Make sure to always urinate after sex. Use non scented, non flavored condoms. Do not sit and bath with scented soaps or oils. Where cotton underwear and change underwear after exercise. Patient Language: French Prescriptions: New fluconazole 150 mg tablet 150 mg PO ONCE Qty: 2 0RF Rx Instructions: as a single dose after antibiotics are complete. If symptoms persist, take second dose 3 days later. Follow-up/Referrals: Jimmie Tian MD [Physician] - 3 Days (OBGYN) Briseida Gutierrez DO [Physician] - 3 Days (Establish care) Time of Disposition: 09:43
[2025-02-25 09:22] VITALS: BP 115/66; PULSE 82; RESP 20; TEMP 37; O2SAT 100
== END 2025-02-25 09:45 | disposition home or self-care (01) ==
PROVIDERS: Emergency Provider Nurse Practitioner Family
DX: B37.31 Acute candidiasis of vulva and vagina (principal)
CPT/HCPCS: 99213; G0463